=== PATIENT | female | born 1955 | race Caucasian/White ===

== ENCOUNTER → 2016-12-24 | Outpatient (REF) ==
--- NOTE | 2016-12-24 16:21 | REP ---
Lumbar spine series: Three views. History: Degenerative disc disease. Findings: There is straightening of the normal lumbar lordosis. There is diffuse degenerative disc disease with disc space narrowing and discogenic spurring. This is most pronounced at L4-5 where there is a vacuum phenomenon. Vertebral body heights are preserved. No malalignment. Pedicles and posterior elements are intact. Sacrum and SI joints are unremarkable. There is no evidence of spondylolysis or spondylolisthesis. Impression: Diffuse degenerative disc disease most pronounced at L4-5. Signed by Chris Bahena MD 12/24/2016 05:11 P
== END ==
LOC: M SMT 14:28
PROVIDERS: ATTEND Internal Medicine
DX: Z02.9 Encounter for administrative examinations, unspecified (principal)